=== PATIENT | female | born 1970 | race Caucasian/White ===

== ENCOUNTER 2016-12-05 10:48 | Emergency (ER) | payer SELFPAY ==
[~2016-12-05] VITALS: Ht 170.2 cm; Wt 125.0 kg
[2016-12-05 10:59] VITALS: BP 148/103; PULSE 92; RESP 15; O2SAT 99
--- NOTE | 2016-12-05 11:47 | ED.REPORT ---
HPI-Overdose/Alcohol Toxicity Date of Service December 05, 2016 ED Provider: The patient is a 46 year old female with history of depression, who presents to the emergency department requesting medical clearance for crisis resp[facility]. The patient has a bed at crisis [facility] at 1200 today. She has been drinking alcohol regularly for some time. Her last drink was last night. She had 90 days of sobriety this year but relapsed in October. She has been able to go to work and does not drink alcohol before work. She does feel sick if she does not drink alcohol. She denies fever, vomiting, black tarry stools. She denies history of alcohol withdrawal seizures. She does not use illicit drugs or smoke tobacco. Her is going to [employer] driver her to alcohol detox. Nursing Notes Stated Complaint: DETOX Chief Complaint: Substance Abuse Nursing Notes Reviewed: Yes Allergies: Coded Allergies: metronidazole (Verified Adverse Reaction, Intermediate, Nausea,Vomiting, ) General Time Seen by Provider: 11:47 Chief Complaint Other (alcohol use, medical clearance for crisis respite) Hx Obtained From: Patient, Spouse Arrived By: Walk-in Onset Occurred: More than a week ago... Symptom Duration: Since onset Progression Since Onset: Constant, Gradually worsening Severity: Current: No pain currently Severity: Maximum: No pain Recent Healthcare: No recent doctor visit, No recent hospitalization Similar Sx Previous: Yes Past Medical History Past Medical History Depression Reactive hypoglycemia Family History Noncontributory Smoking History Never Smoker Social History Alcohol Use: >5 per day Drug Use: Denies drug use Other Social History: Good social support, , Local resident Occupation Works at [employer] Ambulatory Status Independent Review of Systems Constitutional: Denies: Fever GI: Denies: Bloody/tarry stool, Hematochezia, Vomiting Complete sys rev & neg: except as marked. Physical Exam Initial Vital Signs Vital Signs (First) Date Time Temp Pulse Resp B/P Pulse Ox O2 Delivery O2 Flow Rate FiO2 12/05/16 10:59 36.6 92 15 148/103 99 Room Air Initial VS: Reviewed Head / Eyes: Atraumatic, Normocephalic, PERRL ENT: Mucous membranes moist, Conjunctiva normal, No scleral icterus Neck: Supple, Non-tender, Full range of motion Extremities: Vascular intact, Neuro intact, No swelling, No tenderness Skin: Warm, Dry, No cyanosis General/Constitutional: Awake, Alert, Cooperative Respiratory / Chest: Atraumatic, Breath sounds NL, Breath sounds = bilat, No respiratory distress, No rales, No rhonchi, No wheezing Cardiovascular: Heart rate NL, Regular rhythm, Heart sounds NL, Cap refill not delayed, Peripheral circulation NL Abdomen: Atraumatic, Soft, Non-tender, No guarding, No rebound, BS normoactive , No distention Neurologic: Oriented X3, Speech NL, No motor deficits, No sensory deficits Psychiatric: Affect NL, Mood NL, Not suicidal, Not homicidal Interpretation & Diagnostics Interpretation & Diagnostics: Urine drug screen: negative Urine : negative Breathalyzer: 0 Re-Eval/Medical Decision Source of Hx: Old records, Family Re-Evaluation/Progress : Time of Eval: 11:58 Re-Evaluation/Progress Note: Discussed plan for discharge to [facility]. All questions were addressed. Counseled Regarding: Diagnosis, Lab results, Need for follow-up, When/why to return to ED Discharge & Departure Impression: Primary Impression: Alcohol use )( Condition at Discharge: No danger to self, No danger to others, No suicidal ideation, No homicidal ideation, Clear for alcohol rehab Disposition: Home Discharge Condition All VS Reviewed: Yes Condition: Stable Patient Instructions: Abuse of Alcohol (ED) Additional Instructions: Thank you for entrusting us with your care today. You have a bed at [facility] at 1200 today. Use the Ativan taper as prescribed. Please return to the emergency department for any new or concerning symptoms. Referrals: NOPCP (PCP) Scribe Attestation Portions of this note were transcribed by Brielle Grijalva. I, Dr. Cortes personally performed the history, physical exam and medical decision-making; I reviewed and confirmed the accuracy of the information in the transcribed note. Signed by: Rosalva Crow, 12/05/2016 at 1215. Yg Cortes MD December 05, 2016 11:47 Brielle Grijalva December 05, 2016 11:53
[2016-12-05] MEDS ORDERED: LORazepam 2 mg Tablet PO ONE (12:00)
[2016-12-05] MEDS ORDERED: LORA-303 PO (12:03)
--- NOTE | 2016-12-05 12:42 | NUR ---
ED MEDICAL DATA ANALYST note: D/A: Pt is a 46 year old female with a history of alcohol abuse who presents to the ED for [facility] MEDICAL DATA ANALYST consult requested for assistance in facilitating transfer. MEDICAL DATA ANALYST spoke with Tara at [facility] who reports that pt does have a bed scheduled for noon and they are awaiting clinicals and a taper. MEDICAL DATA ANALYST provided BAL and clinical information and pt was accepted for admission. Pt's to [facility] P: [facility]. Rome García, MEDICAL DATA ANALYST
== END 2016-12-05 12:16 | disposition home or self-care (01) ==
LOC: SED 10:48
DX: F10.929 Alcohol use, unspecified with intoxication, unspecified (principal); F32.9 Major depressive disorder, single episode, unspecified; Z88.8 Allergy status to other drugs, medicaments and biological substances